=== PATIENT | male | born 1985 | race Caucasian/White ===

== ENCOUNTER 2017-06-23 05:32 | Day surgery (SDC) | payer OTHER ==
[~2017-06-23] VITALS: Ht 182.9 cm; Wt 115.7 kg
[~2017-06-23 05:32] MED LIST: CLARITIN,ALAVAR10 MG PO; NOHOMEMEDS; ONE DAILY FOR1 EACH PO; PRILOSEC40 MG PO; VITAMIN C1000 MG PO; VITAMIN D-32000 UNI2 PO
[2017-06-23] MEDS ORDERED: AMBIEN5 MG PO (05:51)
[2017-06-23] MEDS ORDERED: LEXAPRO20 MG PO (05:51)
[2017-06-23] MEDS ORDERED: WELLBUTRIN XL300 MG PO (05:51)
[2017-06-23 07:10] VITALS: BP 117/74
[2017-06-23 10:25] VITALS: BP 123/86
[2017-06-23 11:35] VITALS: BP 117/81
== END 2017-06-23 11:36 | disposition home or self-care (01) ==
LOC: SDC 05:32
DX: M20.11 Hallux valgus (acquired), right foot (principal); M21.611 Bunion of right foot; E66.9 Obesity, unspecified; Z87.891 Personal history of nicotine dependence
CPT/HCPCS: J0690; J1100; J1170; J2250; J2405; J3010; S0020